=== PATIENT | male | born 1970 | race African-American/Black ===

== ENCOUNTER 2016-12-08 15:48 | Outpatient (CLI) | payer OTHER ==
--- NOTE | 2016-12-08 18:24 | MRI ---
CERVICAL SPINE MRI WITHOUT CONTRAST: Date: 12/08/16 HISTORY: Cervical radiculopathy. Neck pain and right hand numbness x1 month. COMPARISON: None. TECHNIQUE: A cervical spine MRI is performed without intravenous Gadolinium administration. Multisequential, mu ltiplanar imaging is performed. FINDINGS: Appropriate T1 marrow signal intensity of the cervical vertebra. Cervical spine vertebral body heigh t is maintained. There is no fracture. Visualized brain parenchyma, cervicomedullary junction, cervical cord, and the upper thoracic cord h ave a normal size and signal intensity. There is intrinsic T1 and T2 hypointensity involving the odontoid process, compatible with sclerosis . On the sagittal STIR sequence, no significant hyperintensity to suggest edema or ligamentous injury. C2-C3: No significant disc osteophyte complex. No significant central canal stenosis. Minimal right foramin al narrowing. Left neural foramen is patent. C3-C4: Broad based disc osteophyte complex abuts the thecal sac. No significant central canal stenosis. Mod erate right foraminal narrowing due to degenerative change of the uncovertebral joint. Left neural f oramen is minimal narrowed. C4-C5: No significant disc osteophyte complex. No significant central canal stenosis. Neural foramina are p atent bilaterally. C5-C6: There is a left paracentral disc osteophyte complex that abuts the thecal sac. Minimal central canal stenosis. Minimal bilateral foraminal narrowing due to degenerative change of the uncovertebral mohan nt. C6-C7: No significant disc osteophyte complex. No significant central canal stenosis. Neural foramina are p atent. C7-T1: No significant disc osteophyte complex. No significant central canal stenosis. Neural foramina are p atent. IMPRESSION: Degenerative changes of the cervical spine as above. No high grade central canal stenosis or high gr shola foraminal narrowing. POS: [facility]
== END 2016-12-08 15:49 | disposition home or self-care (01) ==
LOC: TBSIIMAG 15:48
PROVIDERS: ATTEND Family Medicine
DX: M47.22 Other spondylosis with radiculopathy, cervical region (principal)
CPT/HCPCS: 72141

== ENCOUNTER 2017-04-19 15:55 | Outpatient (CLI) | payer OTHER ==
--- NOTE | 2017-04-20 09:14 | MRI ---
MRI RIGHT KNEE WITHOUT CONTRAST: History: N25.561, right knee pain, meniscal tear. Comparison: None. FINDINGS: Medial meniscus: There is a complex undersurface FLAP tear involving the posterior horn of the medial meniscus with medial gutter extrusion of the FLAP fragment. Degenerative signal does extend to the r oot attachment. Lateral meniscus: Intact. ACL/PCL: Intact. LCL/MCL: Intact. Extensor mechanism: The quadriceps tendon is intact. There is mild lateral subluxation of the patella. Moderate proximal patellar tendinosis. Mild distal patellar tendon insertional tendinosis. Cartilage: Patellofemoral compartment: 50% thickness fissures of the medial trochlea, trochlear grove and the me dial patellar facet without full thickness defect. Medial compartment: Near full thickness cartilage loss on the central weight bearing surface medial f emoral condyle with a defect measuring 8 mm in transverse x 1 cm in AP dimension. Posterior flexion z one is intact. Lateral compartment: Intact. Muscles: Muscle signal normal. Soft tissues: Extensive superficial soft tissue edema. Large joint effusion. Mild synovitis. IMPRESSION: 1. Complex undersurface FLAP tear involving the posterior horn of the medial meniscus with medial gut ter extrusion of the FLAP fragment. 2. Focal near full thickness cartilage defect of the central weight bearing surface medial femoral co ndyle measuring 8 mm in transverse by 1 cm in AP dimension. 3. Mild lateral subluxation of the patella. The TT/TG distance is approximately 18 mm. 4. Moderate proximal and distal patellar tendinosis. 5. Large joint effusion with synovitis. 6. 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 POS: [facility]
== END 2017-04-19 15:56 | disposition home or self-care (01) ==
LOC: TBSIIMAG 15:55
PROVIDERS: ATTEND Orthopaedic Surgery
DX: M25.561 Pain in right knee (principal); S83.231A Complex tear of medial meniscus, current injury, right knee, initial encounter; M76.51 Patellar tendinitis, right knee; M65.9 Synovitis and tenosynovitis, unspecified; M22.41 Chondromalacia patellae, right knee

== ENCOUNTER 2017-05-03 11:59 | Outpatient (CLI) | payer OTHER ==
[2017-05-03 13:11] LABS: #Basophils 0.1 thou/uL (0.0-0.2); #Eosinphils 0.2 thou/uL (0.0-0.7); #Lymphocytes 1.7 thou/uL (1.20-3.40); #Monocytes 0.6 thou/uL (0.11-0.59); #Neutrophils 4.8 thou/uL (1.40-6.50); %Basophils 0.8 % (0.0-1.0); %Eosinophils 2.5 % (0.0-10.0); %Lymphocytes 22.9 % (21.0-51.0); %Monocytes 8.1 % (0.0-10.0); %Neutrophils 65.7 % (42.0-75.0); Hemoglobin 13.7 g/dL (14.0-18.0); Mean Corpuscular Volume 93.8 fl (80.0-94.0); Mean Platelet Volume 8.1 fL (7.4-10.4); Platelet Count 198 thou/uL (130-400); RBC Distribution Width 12.5 % (11.5-14.5); Red Blood Cell (RBC) Count 4.44 mill/uL (4.70-6.10); White Blood Cell (WBC) Count 7.4 thou/uL (4.8-10.8)
[2017-05-03 13:32] LABS: Anion Gap 9 mmol/L (10-20); BUN (Urea Nitrogen) 16 mg/dL (8.9-20.6); Calc. Creatinine Clearance 0 mL/min (70-130); Calcium 9.4 mg/dL (7.8-10.44); Carbon Dioxide 27 mmol/L (22-29); Chloride 107 mmol/L (98-107); Estimated GFR-MDRD 66; Glucose 96 mg/dL (70-105); Potassium 3.7 mmol/L (3.5-5.1); Sodium 139 mmol/L (136-145)
--- NOTE | 2017-05-03 15:33 | EKG ---
Test Reason : Blood Pressure : / mmHG Vent. Rate : 068 BPM Atrial Rate : 068 BPM P-R Int : 182 ms QRS Dur : 100 ms QT Int : 396 ms P-R-T Axes : 031 033 -02 degrees QTc Int : 421 ms Normal sinus rhythm Nonspecific ST abnormality Abnormal ECG Confirmed by DOTTY STALEY ([id number]) on 05/03/2017 3:33:32 PM Referred By: IERO Confirmed By:DOTTY STALEY
== END 2017-05-03 12:00 | disposition home or self-care (01) ==
LOC: LABBT 11:59
PROVIDERS: ATTEND Orthopaedic Surgery
DX: Z01.810 Encounter for preprocedural cardiovascular examination (principal); Z01.812 Encounter for preprocedural laboratory examination; S83.206A Unspecified tear of unspecified meniscus, current injury, right knee, initial encounter
CPT/HCPCS: 80048; 85025; 93005; 93010

== ENCOUNTER → 2017-05-05 | Day surgery (SDC) | payer OTHER ==
[2017-05-03 12:21] VITALS: BMI 42.5
[~2017-05-05] MED LIST: Clindamycin/D5W 600 mg/50 ml Premix Bag ONE; Fentanyl 100 MCG/2 ML VIAL ONE; HYDROcodone/Acetaminophen 5/325 mg Tablet ONE; hydrALAZINE 20 MG/ML VIAL ONE
--- NOTE | 2017-05-05 13:46 | OP ---
DATE OF PROCEDURE: 05/05/2017 PREOPERATIVE DIAGNOSIS: Right knee posterior horn medial meniscal tear. POSTOPERATIVE DIAGNOSIS: 1. Right knee posterior horn medial meniscal tear. 2. Grade 4 lesion medial femoral condyle with large unstable chondral flaps. 3. Multiple cartilaginous loose bodies with 2 of these loose bodies approximately 1 cm in length and approximately 3 mm in width. PROCEDURES PERFORMED: 1. Right knee arthroscopy with partial medial meniscectomy. 2. Removal of loose bodies with the largest of these being approximately 1 cm in length. SURGEON: Rasheed Reed M.D. DIRECTOR OF ANNUAL GIVING: None. BLOOD LOSS: Minimal. COMPLICATIONS: None. ANESTHESIA: He had general anesthetic. He also had local knee block. He did go to the [facility] in stable condition. 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 He come s in complaining of chronic pain, swelling, and catching of the knee. At this time, he opted to have surgery. DESCRIPTION OF PROCEDURE: After all appropriate consent forms were explained and signed, he was take n to the operating room and at this time was given general anesthetic. Once anesthesia was appropria te, the tourniquet was placed on the thigh and leg was placed in an arthroscopic leg quick. He was then prepped and draped in standard surgical fashion. Limb was then exsanguinated and tourniquet flash en up to 300 mmHg. An inferolateral portal was established and the scope was placed into the knee dayami int. Needle localization technique was then used to make a medial working portal. Diagnostic arthro scopy commenced in the notch. ACL and PCL probed and found to be intact. There were multiple cartil aginous loose bodies noted in all over the place, these were removed with the suction shaver device. There were two larger pieces 1 mm in the medial compartment, one in the medial gutter, which were 1 cm in length and about 3-4 mm in width, these were removed with a grasper. The loose edges of the ch ondral flaps again were taken down. At this time, we were able to evaluate the meniscus. There was a degenerative complex tear of the posterior horn going into the body of medial meniscus and a partia l medial meniscectomy was performed using meniscal biter and shaver back to a stable base. Lateral c ompartment was entered and other than some cartilaginous loose bodies underneath the lateral meniscus was found to be completely intact as far as the femur, tibia, and lateral meniscus was concerned. A gain, multiple cartilaginous loose bodies were noted in both medial and lateral gutters. These were completely removed and the suprapatellar pouch also had some loose bodies which were removed, but the patella in the trochlear groove cartilage was in excellent condition. At this time, the scope was r emoved, the knee was drained, portals closed with simple nylon stitch. A bulky sterile dressing was applied and tourniquet was let down. Toes pinked up nicely. The patient was awakened and taken to t he recovery room in stable condition. All counts were correct at the end of the case and he did rece addison preoperative IV antibiotics.
== END ==
LOC: SDC 05:58
PROVIDERS: ATTEND Orthopaedic Surgery
PROC: 0SBC4ZZ Excision of Right Knee Joint, Percutaneous Endoscopic Approach (ICD-10-PCS; principal; 2017-05-05)
DX: S83.231A Complex tear of medial meniscus, current injury, right knee, initial encounter (principal); M24.10 Other articular cartilage disorders, unspecified site; E78.5 Hyperlipidemia, unspecified; N40.0 Benign prostatic hyperplasia without lower urinary tract symptoms; F41.9 Anxiety disorder, unspecified; I11.9 Hypertensive heart disease without heart failure; R73.03 Prediabetes; E66.9 Obesity, unspecified; M54.5 Low back pain; G47.9 Sleep disorder, unspecified; E55.9 Vitamin D deficiency, unspecified; I25.10 Atherosclerotic heart disease of native coronary artery without angina pectoris; G43.909 Migraine, unspecified, not intractable, without status migrainosus; I73.9 Peripheral vascular disease, unspecified; Z68.41 Body mass index [BMI] 40.0-44.9, adult; Z79.899 Other long term (current) drug therapy; Z88.8 Allergy status to other drugs, medicaments and biological substances; Z88.0 Allergy status to penicillin; Z98.52 Vasectomy status; Z98.890 Other specified postprocedural states
CPT/HCPCS: J0360; J3010; J3490

== ENCOUNTER 2017-09-03 15:03 | Outpatient (CLI) | payer OTHER | END 2017-09-03 15:04 | disposition home or self-care (01) | LOC: BICULT 15:03 | PROVIDERS: ATTEND Family Medicine | DX: M54.2 Cervicalgia (principal); R93.7 Abnormal findings on diagnostic imaging of other parts of musculoskeletal system | CPT/HCPCS: 76999 ==

== ENCOUNTER 2018-02-22 21:14 | Emergency (ER) | payer OTHER ==
[2018-02-22] MEDS ORDERED: Prochlorperazine 10 MG/2 ML VIAL ONE (21:34)
[2018-02-22] MEDS ORDERED: diphenhydrAMINE 50 MG/ML VIAL ONE (21:34)
[2018-02-22 21:56] LABS: #Basophils 0.1 thou/uL (0.0-0.2); #Eosinphils 0.1 thou/uL (0.0-0.7); #Lymphocytes 1.5 thou/uL (1.20-3.40); #Monocytes 0.7 thou/uL (0.11-0.59); #Neutrophils 6.5 thou/uL (1.40-6.50); %Basophils 1.4 % (0.0-1.0); %Eosinophils 1.6 % (0.0-10.0); %Lymphocytes 17.1 % (21.0-51.0); %Monocytes 7.8 % (0.0-10.0); %Neutrophils 72.1 % (42.0-75.0); Hemoglobin 14.6 g/dL (14.0-18.0); Mean Corpuscular Hemoglobin 28.4 pg (27.0-31.0); Mean Corpuscular Volume 85.9 fL (78.0-98.0); Mean Platelet Volume 9.1 fL (7.4-10.4); Platelet Count 173 thou/uL (130-400); RBC Distribution Width 12.4 % (11.5-14.5); Red Blood Cell (RBC) Count 5.13 mill/uL (4.70-6.10)
--- NOTE | 2018-02-22 22:07 | CT ---
BRAIN CT WITHOUT IV CONTRAST: 02/22/18 HISTORY: 47-year-old male with history of headache for one week. No focal mass or midline shift. No intra or extra-axial hemorrhage. Sinuses and mastoids are clear. IMPRESSION: No acute intracranial process. No mass or bleed. POS: [facility]
--- NOTE | 2018-02-22 22:09 | RAD ---
CHEST ONE VIEW: 02/22/18 HISTORY: 47-year-old male with history of pain and headache for one week. Heart size is within normal limits. The lungs are clear. old granulomatous disease. IMPRESSION: No acute intrathoracic disease. Old granulomatous disease. Atherosclerosis of the aorta. Stable from prior study. POS: [facility]
[2018-02-22 22:11] LABS: ALT (SGPT) 27 U/L (8-55); AST (SGOT) 17 U/L (5-34); Albumin 4.2 g/dL (3.5-5.0); Alkaline Phosphatase 86 U/L (40-150); Anion Gap 16 mmol/L (10-20); BUN (Urea Nitrogen) 23 mg/dL (8.9-20.6); Bilirubin, Total 0.7 mg/dL (0.2-1.2); CK (CPK) 207 U/L (30-200); CKMB 2.8 ng/mL (0-6.6); Calc. Creatinine Clearance 0 mL/min (70-130); Calcium 9.5 mg/dL (7.8-10.44); Carbon Dioxide 20 mmol/L (22-29); Chloride 105 mmol/L (98-107); Estimated GFR-MDRD 60; Globulin 3.3 g/dL (2.4-3.5); Glucose 101 mg/dL (70-105); Potassium 4.3 mmol/L (3.5-5.1); Protein, Total 7.5 g/dL (6.0-8.3); Sodium 137 mmol/L (136-145)
[2018-02-22] MEDS ORDERED: Magnesium Sulfate 2 GM/NS 0.9% 50 ML BAG ONE (22:28)
== END 2018-02-22 23:10 | disposition home or self-care (01) ==
LOC: SCSER 21:14
DX: R51 Headache (principal); I10 Essential (primary) hypertension
CPT/HCPCS: 70450; 71045; 80053; 82550; 82553; 84484; 85025; 93005; 96365; 96367; 96375; J0780; J1200; J3475

== ENCOUNTER 2018-02-24 14:28 | Outpatient (CLI) | payer OTHER | END 2018-02-24 14:29 | disposition home or self-care (01) | LOC: ULT 14:28 | PROVIDERS: ATTEND Family Medicine | DX: I10 Essential (primary) hypertension (principal); I08.1 Rheumatic disorders of both mitral and tricuspid valves | CPT/HCPCS: 93306 ==

== ENCOUNTER 2018-02-28 17:11 | Outpatient (CLI) | payer OTHER ==
--- NOTE | 2018-02-28 19:44 | RAD ---
CERVICAL SPINE RADIOGRAPHS THREE VIEWS: 02/28/2018 PROVIDED CLINICAL HISTORY: Bilateral neck pain. FINDINGS: Cervical alignment appears normal. Vertebral body heights appear preserved. There is disk space starr rowing and osteophyte formation at C5-C6 and C6-C7. No prevertebral soft tissue swelling apparent. The visualized lung apices appear clear. No lytic or blastic bony lesions apparent. IMPRESSION: Cervical disk degenerative change. POS: [facility]
== END 2018-02-28 17:12 | disposition home or self-care (01) ==
LOC: SCSRAD 17:11
PROVIDERS: ATTEND Family Medicine
DX: M54.2 Cervicalgia (principal); M47.812 Spondylosis without myelopathy or radiculopathy, cervical region
CPT/HCPCS: 72040

== ENCOUNTER 2018-03-11 12:36 | Outpatient (CLI) | payer OTHER ==
--- NOTE | 2018-03-11 15:34 | MRI ---
EXAM: CERVICAL SPINE MRI WITHOUT IV CONTRAST 03/11/18 HISTORY: 47-year-old male with history of M54.2 - cervicalgia with neck and bilateral arm pain and numbness. COMPARISON: 12/08/16. FINDINGS: Multiplanar and multisequence MRI examination of the cervical spine is performed. The visualized brai n is unremarkable. there are generalized disc desiccation changes and ligament and facet hypertrophic changes. C2-C3 is unremarkable. C3-C4: Right posterolateral disc osteophyte with mild lateral recess stenosis and moderate right fora jason stenosis. C4-C5: Very mild foraminal stenosis. At C5-C6, moderate bilateral foraminal stenosis with mild left lateral recess stenosis from disc oste ophytosis. At C6-C7, mild left foraminal stenosis. At C7-T1, no canal or foraminal stenosis. No spinal cord mass or overt spinal cord compression. IMPRESSION: Variable severity multilevel mostly lateral recess and foraminal stenosis, most marked at C3-C4 with little change from prior study. No spinal cord mass or spinal cord compression. No significant abnorm al marrow signal. POS: [facility]
== END 2018-03-11 12:37 | disposition home or self-care (01) ==
LOC: TBSIIMAG 12:36
PROVIDERS: ATTEND Family Medicine
DX: M54.2 Cervicalgia (principal); M48.02 Spinal stenosis, cervical region
CPT/HCPCS: 72141

== ENCOUNTER 2018-07-14 17:00 | Outpatient (CLI) | payer OTHER | END 2018-07-14 17:01 | disposition home or self-care (01) | LOC: SLEEPLAB 17:00 | PROVIDERS: ATTEND Family Medicine | DX: G47.33 Obstructive sleep apnea (adult) (pediatric) (principal); R06.83 Snoring; I10 Essential (primary) hypertension; R51 Headache; G47.00 Insomnia, unspecified | CPT/HCPCS: 95806 ==

== ENCOUNTER 2018-12-30 07:03 | Outpatient (CLI) | payer OTHER ==
--- NOTE | 2018-12-30 07:51 | ULT ---
ABDOMINAL ULTRASOUND: DATE: 12/30/2018. PROVIDED CLINICAL HISTORY: Abdominal pain. FINDINGS: The visualized abdominal aorta and IVC appear normal. The pancreas is obscured. The liver demonstrates no evidence for a mass or intrahepatic biliary ductal dilatation. The common duct is not dilated. The gallbladder demonstrates no stones, wall thickening, or pericholecystic flu id. The kidneys demonstrate no evidence for hydronephrosis or mass. The spleen is not enlarged and demonstrates no focal abnormality. IMPRESSION: No evidence for an acute process. POS: [facility]
== END 2018-12-30 07:04 | disposition home or self-care (01) ==
LOC: SCSULT 07:03
PROVIDERS: ATTEND Family Medicine
DX: R10.10 Upper abdominal pain, unspecified (principal)
CPT/HCPCS: 76700

== ENCOUNTER 2019-02-23 08:15 | Day surgery (SDC) | payer OTHER ==
[2019-02-22 11:40] VITALS: BMI 45.0
[2019-02-23] MEDS ORDERED: Acetaminophen 500 MG TAB ONE (10:42)
--- NOTE | 2019-02-23 10:46 | OP ---
DATE OF PROCEDURE: 02/23/2019 [facility] ARTIST SURGEON: None. PROCEDURES PERFORMED: 1. Esophagogastroduodenoscopy with biopsies. 2. Colonoscopy, screening. INDICATIONS: 1. Epigastric pain. 2. Average risk colorectal cancer screening exam. This is the patient's first colonoscopy. MEDICATIONS: See Anesthesia record. FINDINGS: After discussion of the risks, benefits, and alternatives of the procedure, informed consent was obtained and witnessed. Pre-endoscopic cardiopulmonary examination was satisfactory. Time-out was performed before sedation was achieved. Sedation was achieved with Anesthesia assistance in the endoscopy unit. A Pentax adult upper endoscope was placed into the oropharynx and passed through the cricopharyngeus under direct visualization. The esophageal mucosa appeared normal throughout with a normal-appearing Z-line. The endoscope was advanced into the stomach. Forward and retroflexed views of the entire gastric mucosa were obtained. In the gastric antrum and body, there was severe erosive gastritis characterized by nodularity of the mucosa, patchy erythema, and friability, as well as multiple erosions and several shallow ulcerations. There is a shallow ulceration in the antrum. There was a deeper ulceration in the pre-pyloric area, and then there was an another shallow ulceration in the pyloric channel itself. There was no stricture evident. The ulcerations do appear benign all or less than 1 cm in diameter. Biopsies were obtained from the gastric antrum and body to evaluate for possible H pylori infection. The endoscope was passed through the pylorus and into the first and second portions of the duodenum, which appeared normal. The upper endoscope was completely withdrawn, and the patient was repositioned. Digital rectal exam was performed, which was unremarkable. A Pentax adult colonoscope was inserted into the anus and passed forward to the cecum in the usual fashion. The cecal base was identified by the appendiceal orifice as well as the ileocecal valve. The terminal ileum was not intubated. The colonoscope was slowly withdrawn in a gradual and circumferential manner with careful examination of the entire colonic mucosa. The quality of the prep was good. The colonic mucosa appeared normal throughout. Retroflexion in the rectum did demonstrate some internal hemorrhoids. The colonoscope was completely withdrawn, and the patient allowed to recover. The patient tolerated the procedure well. There were no immediate postprocedure complications. IMPRESSION: 1. Erosive gastritis with multiple shallow antral ulcerations. Biopsies obtained to rule out Helicobacter pylori. 2. Otherwise normal esophagogastroduodenoscopy. 3. Internal hemorrhoids. 4. Otherwise normal colonoscopy to the cecum. RECOMMENDATIONS: 1. Pantoprazole 40 mg twice daily. 2. Avoid any nonsteroidal anti-inflammatory drugs. 3. Follow up pathology on the gastric biopsies if H pylori is positive, treat with triple therapy and confirm eradication. 4. We will plan for repeat EGD in 2 months to evaluate for ulcer healing. 5. Recall for screening colonoscopy in 10 years. Job ID: [id number]
[2019-02-23] MEDS ORDERED: Acetaminophen 650 MG/20.3 ML UDCUP ONE (11:09)
[2019-02-23] MEDS ORDERED: PROPOFOL 200 MG/20 ML VIAL ONE (13:00)
== END 2019-02-23 11:00 | disposition home or self-care (01) ==
LOC: EEVIPCON 08:15 → SDC 08:15
PROVIDERS: ATTEND Internal Medicine
PROC: 0DB68ZX Excision of Stomach, Via Natural or Artificial Opening Endoscopic, Diagnostic (ICD-10-PCS; principal; 2019-02-23)
PROC: 0DJD8ZZ Inspection of Lower Intestinal Tract, Via Natural or Artificial Opening Endoscopic (ICD-10-PCS; principal; 2019-02-23)
DX: Z12.11 Encounter for screening for malignant neoplasm of colon (principal); K64.8 Other hemorrhoids; K29.50 Unspecified chronic gastritis without bleeding; B96.81 Helicobacter pylori [H. pylori] as the cause of diseases classified elsewhere; R19.7 Diarrhea, unspecified; Z79.899 Other long term (current) drug therapy; Z88.0 Allergy status to penicillin; Z91.018 Allergy to other foods
CPT/HCPCS: 88305; 88312; J2704

== ENCOUNTER 2021-03-28 07:43 | Outpatient (CLI) | payer BC ==
[2021-03-28] MEDS ORDERED: Iopamidol 370 76% 100 ML VIAL ONE (14:30)
== END 2021-03-28 07:44 | disposition home or self-care (01) ==
LOC: CT 07:43
PROVIDERS: ATTEND Family Medicine
DX: R10.9 Unspecified abdominal pain (principal); E27.8 Other specified disorders of adrenal gland; N28.1 Cyst of kidney, acquired
CPT/HCPCS: 74177; 82565; Q9967

== ENCOUNTER 2021-08-02 09:34 | Emergency (ER) | payer BC ==
[2021-08-02 10:07] LABS: #Basophils 0.1 thou/uL (0.0-0.2); #Eosinphils 0.2 thou/uL (0.0-0.7); #Lymphocytes 1.7 thou/uL (1.20-3.40); #Monocytes 0.5 thou/uL (0.11-0.59); #Neutrophils 2.9 thou/uL (1.40-6.50); %Eosinophils 3.6 % (0.0-10.0); %Lymphocytes 31.2 % (21.0-51.0); %Monocytes 8.6 % (0.0-10.0); %Neutrophils 55.7 % (42.0-75.0); Hemoglobin 14.1 g/dL (14.0-18.0); Mean Corpuscular HGB CONC 32.6 g/dL (32.0-36.0); Mean Corpuscular Hemoglobin 31.2 pg (27.0-31.0); Mean Corpuscular Volume 95.6 fL (78.0-98.0); Mean Platelet Volume 7.8 fL (7.4-10.4); Platelet Count 185 thou/uL (130-400); RBC Distribution Width 12.4 % (11.5-14.5); Red Blood Cell (RBC) Count 4.53 mill/uL (4.70-6.10); White Blood Cell (WBC) Count 5.3 thou/uL (4.8-10.8)
[2021-08-02 10:27] LABS: ALT (SGPT) 29 U/L (8-55); AST (SGOT) 18 U/L (5-34); Albumin 4.1 g/dL (3.5-5.0); Alkaline Phosphatase 63 U/L (40-110); Anion Gap 13 mmol/L (10-20); BUN (Urea Nitrogen) 25 mg/dL (8.9-20.6); Bilirubin, Total 0.6 mg/dL (0.2-1.2); Calc. Creatinine Clearance 0 mL/min (70-130); Calcium 9.3 mg/dL (7.8-10.44); Carbon Dioxide 23 mmol/L (22-29); Chloride 105 mmol/L (98-107); Globulin 3.3 g/dL (2.4-3.5); Glucose 132 mg/dL (70-105); Protein, Total 7.4 g/dL (6.0-8.3); Sodium 137 mmol/L (136-145)
== END 2021-08-02 12:51 | disposition home or self-care (01) ==
LOC: ERS 09:34
DX: R55 Syncope and collapse (principal); I10 Essential (primary) hypertension; Z79.899 Other long term (current) drug therapy
CPT/HCPCS: 36415; 71045; 80053; 83880; 84484; 85025; 93005; 96360

== ENCOUNTER 2021-10-29 14:37 | Outpatient (CLI) | payer BC | END 2021-10-29 14:38 | disposition home or self-care (01) | LOC: ULT 14:37 | PROVIDERS: ATTEND Internal Medicine Cardiovascular Disease | DX: I10 Essential (primary) hypertension (principal); N28.1 Cyst of kidney, acquired | CPT/HCPCS: 76770; 93975 ==

== ENCOUNTER 2022-11-06 19:30 | Outpatient (CLI) | payer BC | END 2022-11-06 19:31 | disposition home or self-care (01) | LOC: SLEEPLAB 19:30 | PROVIDERS: ATTEND Family Medicine | DX: G47.33 Obstructive sleep apnea (adult) (pediatric) (principal); R53.83 Other fatigue; E66.9 Obesity, unspecified; R06.83 Snoring; I10 Essential (primary) hypertension | CPT/HCPCS: 95811 ==

== ENCOUNTER 2024-04-21 06:26 | Day surgery (SDC) | payer BC ==
[2024-04-20 08:47] VITALS: BMI 38.9
[2024-04-21] MEDS ORDERED: PROPOFOL 20 ML ONE (06:44)
[2024-04-21] MEDS ORDERED: fentaNYL PF 100 MCG/2 ML SYRINGE ONE (06:44)
[2024-04-21] MEDS ORDERED: Midazolam HCl 2 mg/2 ml Vial ONE (06:44)
[2024-04-21] MEDS ORDERED: Rocuronium Bromide 10 MG/ML (10ML VIAL) ONE (06:45)
[2024-04-21] MEDS ORDERED: Lidocaine 1% PF 5 ML VIAL ONE (06:45)
[2024-04-21] MEDS ORDERED: Ondansetron PF 4 MG/2 ML Vial ONE (06:45)
[2024-04-21] MEDS ORDERED: Dexamethasone 20 MG/5 ML VIAL ONE (06:45)
[2024-04-21] MEDS ORDERED: EPINEPHrine 1 MG/ML VIAL ONE (07:02)
[2024-04-21] MEDS ORDERED: LevoFLOXacin D5W 500 mg (100 mL) BAG ONE (07:02)
[2024-04-21] MEDS ORDERED: Thrombin 5000 UNITS/5 ML VIAL ONE (07:03)
[2024-04-21] MEDS ORDERED: Bupivacaine PF 0.5% 30 ML VIAL ONE (07:03)
[2024-04-21] MEDS ORDERED: HYDROmorphone 2 MG/ML VIAL ONE (08:47)
[2024-04-21] MEDS ORDERED: SUGAMMADEX SODIUM 200 MG/2 ML VIAL ONE (09:40)
[2024-04-21] MEDS ORDERED: fentaNYL 50 mcg/mL 1 mL Vial ONE (10:57)
[2024-04-21] MEDS ORDERED: Ketorolac Tromethamine 30 MG (1 mL) VIAL ONE (10:58)
[2024-04-21] MEDS ORDERED: Tamsulosin HCl 0.4 MG CAP ONE (11:07)
== END 2024-04-21 13:17 | disposition home or self-care (01) ==
LOC: SDC 06:26
PROVIDERS: ATTEND Neurological Surgery
PROC: 01NB3ZZ Release Lumbar Nerve, Percutaneous Approach (ICD-10-PCS; principal; 2024-04-21)
DX: M47.26 Other spondylosis with radiculopathy, lumbar region (principal); F41.9 Anxiety disorder, unspecified; F32.A Depression, unspecified; G43.909 Migraine, unspecified, not intractable, without status migrainosus; E78.5 Hyperlipidemia, unspecified; G47.33 Obstructive sleep apnea (adult) (pediatric); E11.9 Type 2 diabetes mellitus without complications; I10 Essential (primary) hypertension; Z98.890 Other specified postprocedural states; Z79.899 Other long term (current) drug therapy; Z88.0 Allergy status to penicillin
CPT/HCPCS: J0171; J0665; J1100; J1171; J1885; J1956; J2250; J2405; J2704; J3010

== ENCOUNTER 2025-01-18 15:07 | Emergency (ER) | payer BC ==
[2025-01-18] MEDS ORDERED: Metoclopramide HCl 10 MG (2 mL) VIAL ONE (16:04)
[2025-01-18] MEDS ORDERED: diphenhydrAMINE 50 MG/ML VIAL ONE (16:04)
[2025-01-18] MEDS ORDERED: Ketorolac Tromethamine 30 MG (1 mL) VIAL ONE (16:04)
[2025-01-18] MEDS ORDERED: Magnesium 2 GM/50 ML BAG (IN WATER) ONE (17:43)
[2025-01-18] MEDS ORDERED: hydrALAZINE 20 MG/ML VIAL ONE (18:00)
[2025-01-18 18:25] LABS: #Basophils 0.05 10x3/uL (0.0-0.2); #Eosinophils 0.18 10x3/uL (0.0-0.7); #Monocytes 0.87 10x3/uL (0.11-0.59); #Neutrophils 7.68 10x3/uL (1.40-6.50); %Basophils 0.5 % (0.0-1.0); %Eosinophils 1.7 % (0.0-10.0); %Lymphocytes 14.6 % (21.0-51.0); %Monocytes 8.4 % (0.0-10.0); %Neutrophils 74.5 % (42.0-75.0); Hematocrit 43.3 % (42.0-52.0); Hemoglobin 14.0 g/dL (14.0-18.0); Mean Corpuscular Hemoglobin 29.0 pg (27.0-31.0); Mean Corpuscular Volume 89.8 fL (78.0-98.0); Platelet Count 183 10x3/uL (130-400); Red Blood Cell (RBC) Count 4.82 mill/uL (4.70-6.10); White Blood Cell (WBC) Count 10.32 10x3/uL (4.8-10.8)
[2025-01-18 18:39] LABS: ALT (SGPT) 18 U/L (Less than 45); AST (SGOT) 16 U/L (11-34); Albumin 3.6 g/dL (3.1-4.5); Alkaline Phosphatase 86 U/L (40-110); Anion Gap 13 mmol/L (10-20); BUN (Urea Nitrogen) 12 mg/dL (8.4-25.7); Bilirubin, Total 0.6 mg/dL (0.3-1.2); Calc. Creatinine Clearance 0 mL/min (70-130); Calcium 9.1 mg/dL (7.8-10.44); Carbon Dioxide 24 mmol/L (22-29); Chloride 108 mmol/L (98-107); Globulin 3.2 g/dL (2.4-3.5); Glucose 97 mg/dL (70-105); Potassium 3.5 mmol/L (3.5-5.1); Sodium 141 mmol/L (136-145)
[2025-01-18] MEDS ORDERED: Ketamine In 0.9 % NaCl 50 MG/5 ML SYRINGE ONE (20:55)
== END 2025-01-18 22:22 | disposition home or self-care (01) ==
LOC: ERS 15:07
DX: R51.9 Headache, unspecified (principal); R29.700 NIHSS score 0; I10 Essential (primary) hypertension; E11.9 Type 2 diabetes mellitus without complications; Z79.899 Other long term (current) drug therapy
CPT/HCPCS: 70450; 84484; 96365; 96367; 96375; J0360; J1200; J1885; J2765; J2919; J3475; J3490